=== PATIENT | female | born 1940 | race Caucasian/White ===

== ENCOUNTER 2019-01-01 15:01 | Outpatient (CLI) | payer MEDICARE ==
[~2019-01-01 15:01] MED LIST: ACET-2119 PO; BISA10SU60 RC; BISM525O70 PO; FURO-150 PO; IPRA3AMP31 IH; MAGN800O PO; MULT-1085 PO; NA P133E4 RC; OMEP-84 PO; ONDA4TAB9 PO; SENN-162 PO
== END 2019-01-01 23:59 | disposition home or self-care (01) ==
LOC: RAD 15:01
PROVIDERS: ATTEND Internal Medicine Gastroenterology
DX: R13.11 Dysphagia, oral phase (principal); K21.9 Gastro-esophageal reflux disease without esophagitis; Z79.899 Other long term (current) drug therapy
CPT/HCPCS: 74230

== ENCOUNTER 2019-07-25 12:35 | Emergency (ER) | payer MEDICARE ==
[~2019-07-25] VITALS: Ht 170.2 cm; Wt 57.0 kg
[~2019-07-25 12:35] MED LIST changes: +LIDOcaine 1% W/epiNEPHrine 1:100,000 20ml vial ONE
[2019-07-25] MEDS ORDERED: normal saline 1000ML IV soln IVB ONE ×2 (13:05→15:45)
[2019-07-25 13:27] LABS: BASOPHILS % (AUTO) 0.9 % (0-1); EOSINOPHILS # (AUTO) 0.1 X10'3 (0-0.9); EOSINOPHILS % (AUTO) 1.3 % (0-6); HEMATOCRIT 35.3 % (35.0-45.0); LYMPHOCYTES % (AUTO) 20.4 % (21-51); MEAN CORPUSCULAR HEMOGLOBIN 37.5 PG (27.0-31.0); MEAN CORPUSCULAR HGB CONC 33.9 g/dL (33.0-36.5); MEAN CORPUSCULAR VOLUME 110.5 FL (78-98); MEAN PLATELET VOLUME 6.4 FL (7.4-10.4); MONOCYTES # (AUTO) 0.5 X10'3 (0-0.9); MONOCYTES % (AUTO) 10.6 % (2-12); NEUTROPHILS # (AUTO) 3.3 X10'3 (1.8-7.7); NEUTROPHILS % (AUTO) 66.8 % (42-75); PLATELET COUNT 187 X10'3 (140-440); RED BLOOD COUNT 3.19 X10'6 (4.20-5.60); RED CELL DISTRIBUTION WIDTH 14.4 % (11.5-14.5); WHITE BLOOD COUNT 4.9 X10'3 (4.5-11.0)
[2019-07-25 13:44] LABS: PARTIAL THROMBOPLASTIN TIME 28 SECONDS (22-32)
[2019-07-25 13:46] LABS: ALANINE AMINOTRANSFERASE 34 U/L (12-78); ALBUMIN 2.9 G/DL (3.4-5.0); ALBUMIN/GLOBULIN RATIO 0.8 (1.1-1.5); ALKALINE PHOSPHATASE 145 IU/L (46-116); ANION GAP 12 (8-16); ASPARTATE AMINO TRANSFERASE 79 U/L (10-37); BILIRUBIN,TOTAL 0.3 MG/DL (0.1-1.0); BLOOD UREA NITROGEN 10 MG/DL (7-18); BUN/CREATININE RATIO 9.4 (6.6-38.0); CALCIUM 7.9 MG/DL (8.5-10.1); CHLORIDE 98 MMOL/L (99-107); CREATININE 1.06 MG/DL (0.40-0.90); GLUCOSE 86 MG/DL (70-104); POTASSIUM 3.7 MMOL/L (3.5-5.1); SODIUM 134 MMOL/L (135-145); TOTAL CARBON DIOXIDE 24.3 MMOL/L (24-32); TOTAL PROTEIN 6.5 G/DL (6.4-8.2); eGFR 50 ML/MIN
--- NOTE | 2019-07-25 13:49 | NUR ---
PATIENT TO CT.
[2019-07-25 13:55] LABS: ETHANOL 0.215 GM/DL (0.0-0.010)
[2019-07-25 13:56] LABS: PLATELET ESTIMATE NORMAL
--- NOTE | 2019-07-25 14:15 | NUR ---
URINE SENT TO THE LAB.
--- NOTE | 2019-07-25 14:16 | NUR ---
C JYOTHI HEARN PER CORA MICHELE.
--- NOTE | 2019-07-25 14:16 | NUR ---
PATIENT REPOSITIONED FOR COMFORT.
[2019-07-25 14:19] LABS: CLARITY,URINE CLEAR (Clear); COLOR,URINE AMBER (Yellow); GLUCOSE, URINE NEGATIVE (Neg); KETONES,URINE NEGATIVE (Neg); LEUKOCYTE ESTERASE ,URINE NEGATIVE (Neg); NITRITES, URINE NEGATIVE (Neg); OCCULT BLOOD,URINE TRACE-INTACT (Neg); PROTEIN,URINE NEGATIVE (Neg); UROBILINOGEN,URINE 0.2 E.U/dL (0.2-1.0)
--- NOTE | 2019-07-25 14:20 | NUR ---
patient requesting prn pain for back pain,Constantino Levine made aware,lac to posterior head irrigated with NS.Awaiting for PA to suture lac.
[2019-07-25 14:21] LABS: UA COLLECTION TYPE STRAIGHT CATH
--- NOTE | 2019-07-25 14:25 | NUR ---
'S PHONE NUMBER [phone]
[2019-07-25 14:26] LABS: BACTERIA,URINE FEW /HPF (Neg); MUCUS STRANDS FEW /LPF (Neg); RBC,URINE 0-2 /HPF (0-2); RENAL CELLS, URINE FEW /HPF; SQUAMOUS EPITHELIAL CELL,UR NONE SEEN /LPF (FEW); WBC,URINE 0-4 /HPF (0-4)
[2019-07-25] MEDS ORDERED: acetaminophen 325mg tablet PO ONE (14:30)
[2019-07-25] MEDS ORDERED: TETanus/Pertussis (Acell)/Diphther VAC/PF (Tdap-Adult) 0.5ml syringe IMVAC ONE (14:35)
--- NOTE | 2019-07-25 15:15 | NUR ---
CORA MICHELE AT BEDSIDE.
--- NOTE | 2019-07-25 16:06 | NUR ---
BEDDINGS AND LINEN CHANGED.
--- NOTE | 2019-07-25 16:35 | NUR ---
awaiting brother to take patient home.
[2019-07-25 17:45] VITALS: BP 131/78
== END 2019-07-25 17:48 | disposition home or self-care (01) ==
LOC: ER 12:36
DX: S01.01XA Laceration without foreign body of scalp, initial encounter (principal); S20.221A Contusion of right back wall of thorax, initial encounter; K21.9 Gastro-esophageal reflux disease without esophagitis; E11.9 Type 2 diabetes mellitus without complications; Z87.11 Personal history of peptic ulcer disease; Z86.711 Personal history of pulmonary embolism; Z98.890 Other specified postprocedural states; Z79.899 Other long term (current) drug therapy; W01.198A Fall on same level from slipping, tripping and stumbling with subsequent striking against other object, initial encounter; Y93.89 Activity, other specified; Y92.89 Other specified places as the place of occurrence of the external cause; Y99.9 Unspecified external cause status
CPT/HCPCS: 12002; 36415; 70450; 71045; 72125; 80053; 80320; 81001; 82948; 83735; 84443; 85025; 85610; 85730; 90471; 90715; 93005; 99284; J7030

== ENCOUNTER 2019-07-31 11:09 | Emergency (ER) | payer MEDICARE ==
[~2019-07-31] VITALS: Ht 170.2 cm; Wt 61.8 kg
[~2019-07-31 11:09] MED LIST changes: -LIDOcaine 1% W/epiNEPHrine 1:100,000 20ml vial ONE
[2019-07-31 11:10] VITALS: BP 111/68
== END 2019-07-31 12:40 | disposition home or self-care (01) ==
LOC: ER 11:09
DX: S01.01XD Laceration without foreign body of scalp, subsequent encounter (principal); K21.9 Gastro-esophageal reflux disease without esophagitis; E11.9 Type 2 diabetes mellitus without complications; Z86.711 Personal history of pulmonary embolism; Z98.890 Other specified postprocedural states; Z79.899 Other long term (current) drug therapy; W18.39XD Other fall on same level, subsequent encounter
CPT/HCPCS: 99281; 99284

== ENCOUNTER 2019-08-12 10:56 | Emergency (ER) | payer MEDICARE ==
[~2019-08-12] VITALS: Ht 170.2 cm; Wt 57.0 kg
[2019-08-12 11:20] LABS: CLARITY,URINE CLOUDY (Clear); COLOR,URINE YELLOW (Yellow); GLUCOSE, URINE NEGATIVE (Neg); KETONES,URINE NEGATIVE (Neg); LEUKOCYTE ESTERASE ,URINE LARGE (Neg); NITRITES, URINE NEGATIVE (Neg); OCCULT BLOOD,URINE SMALL (Neg); PROTEIN,URINE NEGATIVE (Neg); UROBILINOGEN,URINE 0.2 E.U/dL (0.2-1.0)
[2019-08-12 11:27] LABS: UA COLLECTION TYPE CLN CATCH MIDSTREAM; WBC,URINE TNTC /HPF (0-4)
[2019-08-12 11:28] LABS: BACTERIA,URINE 4+ /HPF (Neg); MUCUS STRANDS NONE SEEN /LPF (Neg); RBC,URINE 0-2 /HPF (0-2); SQUAMOUS EPITHELIAL CELL,UR MODERATE /LPF (FEW); TRANSITIONAL EPI CELLS,URINE FEW /HPF
[2019-08-12] MEDS ORDERED: cephalexin 250mg capsule PO ONE (12:00)
[2019-08-12] MEDS ORDERED: CEPH500C2 PO (12:01)
[2019-08-12 12:23] VITALS: BP 132/66
== END 2019-08-12 12:33 | disposition home or self-care (01) ==
LOC: ER 10:56
DX: N39.0 Urinary tract infection, site not specified (principal); E11.9 Type 2 diabetes mellitus without complications; K21.9 Gastro-esophageal reflux disease without esophagitis; Z79.2 Long term (current) use of antibiotics; Z79.899 Other long term (current) drug therapy; Z87.19 Personal history of other diseases of the digestive system; Z87.11 Personal history of peptic ulcer disease; Z98.890 Other specified postprocedural states
CPT/HCPCS: 81001; 87077; 87088; 87186; 99284